=== PATIENT | female | born 1980 | race Caucasian/White ===

== ENCOUNTER 2018-04-02 09:46 | Emergency (ER) | payer OTHER ==
[~2018-04-02] VITALS: Ht 167.6 cm; Wt 115.7 kg
[~2018-04-02 09:46] MED LIST: FERR325E14 PO; IBUP-974 PO; METF500T2 PO
[2018-04-02 09:50] VITALS: BP 139/59
--- NOTE | 2018-04-02 09:54 | NUR ---
PT AMBULATED TO BED 12 WITH STADY GAIT
--- NOTE | 2018-04-02 10:00 | NUR ---
37/F PRESENT TO AREA ON STOMACH AREA x 5 DAYS AGO. PT DENIES ANY ALLERGIES OR EXPOSURES TO ANY CHEMICAL AGENT, NO NEW FOODS, NO CHANGE IN DETERGENT, SOAPS OR LOTION. PT DENIES ANY SOB OR ITICHING IN AIRWAY. ER MADE AWARE. WILL CONTINUE TO MONITOR. HX: NONE MEDS: OTC BENADRYL
--- NOTE | 2018-04-02 10:05 | NUR ---
Patient being evaluated by physician at bedside.
--- NOTE | 2018-04-02 10:10 | NUR ---
PT AMBULATED TO BATHROOM WITH STEADY GAIT
[2018-04-02] MEDS ORDERED: DEXAMETHASONE 10 MG/ML VIAL IM ONE (10:15)
[2018-04-02] MEDS ORDERED: diphenhydrAMINE 50 MG/ML VIAL IM ONE (10:15)
[2018-04-02 10:51] VITALS: BP 135/60
--- NOTE | 2018-04-02 10:51 | NUR ---
Patient discharged with v/s stable. Written and verbal after care instructions given and explained. Patient alert, oriented and verbalized understanding of instructions. Ambulatory with steady gait. All questions addressed prior to discharge. ID band removed. Patient advised to follow up with PMD. Rx of ATARAX AND PREDNISONE given. Patient educated on indication of medication including possible reaction and side effects. Opportunity to ask questions provided and answered.
== END 2018-04-02 10:51 | disposition home or self-care (01) ==
LOC: MED 09:46
DX: L50.0 Allergic urticaria (principal); E11.9 Type 2 diabetes mellitus without complications; Z79.84 Long term (current) use of oral hypoglycemic drugs; X58.XXXA Exposure to other specified factors, initial encounter
CPT/HCPCS: 96372; 99284; J1100; J1200

== ENCOUNTER 2018-07-13 19:23 | Inpatient (IN) | payer OTHER ==
[~2018-07-13] VITALS: Ht 167.6 cm; Wt 113.4 kg
[2018-07-13 19:36] VITALS: BP 140/90
[2018-07-13] MEDS ORDERED: NACL 0.9% 1,000 ML IV ONE (20:05)
[2018-07-13 20:22] LABS: BASOPHILS % (AUTO) 0.5 % (0.0-2.0); EOSINOPHILS # (AUTO) 0.4 K/uL (0-0.4); EOSINOPHILS % (AUTO) 3.8 % (0.0-4.0); LYMPHOCYTES # (AUTO) 2.4 K/uL (2.5-16.5); LYMPHOCYTES % (AUTO) 24.7 % (20.5-51.1); MEAN CORPUSCULAR HEMOGLOBIN 15 pg (27-31); MEAN CORPUSCULAR HGB CONC 29 g/dL (33-37); MEAN CORPUSCULAR VOLUME 52.6 fL (80-94); MONOCYTES # (AUTO) 0.8 K/uL (0.8-1.0); PLATELET COUNT (AUTO) 219 K/uL (140-450); RED BLOOD CELL COUNT(AUTO) 4.19 MIL/uL (4.20-5.40); RED CELL DISTRIBUTION WIDTH 20.6 % (11.6-13.7); WHITE BLOOD COUNT (AUTO) 9.5 K/uL (4.8-10.8)
[2018-07-13 20:27] LABS: HEMOGLOBIN 6.4 g/dL (12.0-16.0)
[2018-07-13 20:40] LABS: ANION GAP 13.8 (8-16); CARBON DIOXIDE 25.4 mmol/L (21-32); CREATININE 0.7 mg/dL (0.6-1.3); POTASSIUM 3.2 mmol/L (3.5-5.1)
[2018-07-13 20:46] LABS: ALBUMIN 3.5 g/dL (3.4-5.0); TOTAL BILIRUBIN 0.3 mg/dL (0.0-1.0)
[2018-07-13] MEDS ORDERED: POTASSIUM CHLORIDE 10 MEQ TABER PO ONE (20:50)
[2018-07-13 21:02] LABS: APPEARANCE,URINE CLEAR (CLEAR); COLOR,URINE YELLOW (YELLOW)
[2018-07-13 21:03] LABS: BILIRUBIN,URINE NEGATIVE (NEGATIVE); BLOOD, URINE NEGATIVE (NEGATIVE); LEUKOCYTE ESTERASE ,URINE 3+ (NEGATIVE); NITRITE, URINE NEGATIVE (NEGATIVE); PH,URINE 6.5 (5.0-9.0); UGLUCOSE NEGATIVE (NEGATIVE)
[2018-07-13 21:14] LABS: RBC,URINE NONE SEEN /HPF (0-5)
[2018-07-13 21:55] LABS: BARBITURATE, URINE NEGATIVE ng/ml (NEG <=200); BENZODIAZEPINE, URINE NEGATIVE ng/mL (NEG <=200); CANNABINOID, URINE NEGATIVE ng/mL (NEG <=50); COCAINE, URINE NEGATIVE ng/mL (NEG <=300); OPIATE, URINE NEGATIVE ng/mL (NEG <=2000); PHENCYCLIDINE SCREEN,URINE NEGATIVE ng/mL (NEG <=25)
[2018-07-13 22:30] VITALS: BP 149/80
[2018-07-14 07:39] LABS: ALBUMIN 3.1 g/dL (3.4-5.0); ANION GAP 13.9 (8-16); CARBON DIOXIDE 24.1 mmol/L (21-32); TOTAL BILIRUBIN 0.2 mg/dL (0.0-1.0)
[2018-07-14 08:05] LABS: RED BLOOD CELL COUNT(AUTO) 4.27 MIL/uL (4.20-5.40); WHITE BLOOD COUNT (AUTO) 9.3 K/uL (4.8-10.8)
[2018-07-14 08:07] LABS: HEMATOCRIT 24.5 % (36-48); MEAN CORPUSCULAR HEMOGLOBIN 16 pg (27-31); MEAN CORPUSCULAR HGB CONC 29 g/dL (33-37); MEAN CORPUSCULAR VOLUME 57.3 fL (80-94); PLATELET COUNT (AUTO) 181 K/uL (140-450); RED CELL DISTRIBUTION WIDTH 21.8 % (11.6-13.7)
[2018-07-14 08:08] LABS: EOSINOPHILS % (MANUAL) 2 % (0-4); LYMPHOCYTES % (MANUAL) 34 % (20-46); MONOCYTES % (MANUAL) 8 % (5-12)
[2018-07-14 08:41] LABS: CREATININE 0.7 mg/dL (0.6-1.3)
[2018-07-14 11:10] VITALS: BP 138/78
[2018-07-14 15:50] VITALS: BP 139/81
[2018-07-14] MEDS ORDERED: INFLUENZA VIRUS VACCINE QUAD 0.5 ML SYR IMVAC PRN (18:00)
[2018-07-14] MEDS ORDERED: INFLUENZA VIRUS VACCINE QUAD 0.5 ML SYR IMVAC ONE (18:04)
== END 2018-07-14 18:40 | disposition home or self-care (01) | DRG 663 ==
LOC: MED 19:23 → MTU 21:31
PROVIDERS: ADMIT Hospitalist; ATTEND Hospitalist
PROC: 30233N1 Transfusion of Nonautologous Red Blood Cells into Peripheral Vein, Percutaneous Approach (ICD-10-PCS; principal; 2018-07-13)
PROC: 3E0234Z Introduction of Serum, Toxoid and Vaccine into Muscle, Percutaneous Approach (ICD-10-PCS; 2018-07-14)
DX: D64.9 Anemia, unspecified (principal); E87.6 Hypokalemia; N93.8 Other specified abnormal uterine and vaginal bleeding; N85.00 Endometrial hyperplasia, unspecified; Z23 Encounter for immunization; Z79.899 Other long term (current) drug therapy
CPT/HCPCS: 36415; 76856; 80053; 80305; 81001; 81025; 85025; 85610; 85730; 86886; 86900; 86901; 86920; 87081; 87086; 90658; 96360; 99285; J7030; P9016; Q0092